=== PATIENT | male | born 1955 | race Caucasian/White ===

== ENCOUNTER 2019-09-27 04:51 | Inpatient (IN) | payer MEDICAID ==
[2019-09-27] VITALS (7 sets, daily range): BP systolic 157–180; BP diastolic 68–120
[~2019-09-27] VITALS: Ht 165.1 cm; Wt 90.5 kg
[~2019-09-27 04:51] MED LIST: AMOX1TAB64 PO; ATEN25TA PO; BUSP5TAB2 PO; CHLO25CA9 PO; CITA20TA9 PO; CITA40TA12 PO; CLON0.5T PO; CLON0.5T20 PO; CLON1TAB PO; CYCL-259 PO; DEXT10TA7 PO; DULO20CA45 PO; DULO60CA56 PO; FLUO10CA13 PO; GABA300C10 PO; LITH150C PO; LITH300C PO; LITH300T3 PO; MELO7.5T31 PO; NICO-487 TD; PANT40TA3 PO; TRAM-47 PO; TRAM50TA2 PO; ZIPR40CA2 PO
[2019-09-27] MEDS ORDERED: BISACODYL 10 MG SUPP PR PRN ×2 (05:30→17:30)
[2019-09-27] MEDS ORDERED: ONDANSETRON ODT 4 MG PO PRN (05:30)
[2019-09-27] MEDS ORDERED: POLYETHYLENE GLYCOL 17 GM PACKET PO PRN (05:30)
[2019-09-27] MEDS ORDERED: DOCUSATE 100 MG CAPSULE PO PRN (05:30)
[2019-09-27] MEDS ORDERED: PLEASE ENTER HEIGHT AND WEIGHT MC SCH (06:30)
[2019-09-27] MEDS ORDERED: LISINOPRIL 20 MG TABLET ONE (08:42)
[2019-09-27] MEDS: CHOLECALCIFEROL 1,000 UNIT TABLET PO SCH (08:46)
[2019-09-27] MEDS: CALCIUM CARBONATE 500 MG TABLET PO SCH (08:46)
[2019-09-27] MEDS ORDERED: LISINOPRIL 10 MG TABLET PO SCH ×2 (09:00)
[2019-09-27] MEDS ORDERED: CITALOPRAM 20 MG TABLET PO SCH (09:00)
[2019-09-27] MEDS: LISINOPRIL 20 MG TABLET PO SCH (09:00)
[2019-09-27 09:08] LABS: ALBUMIN 3.3 g/dL (3.4-5.0); ANION GAP 11 mmol/L (5-15); CALCIUM 9.2 mg/dL (8.5-10.1); CHLORIDE 111 mmol/L (98-107); CREATININE 0.94 mg/dL (0.7-1.3)
[2019-09-27 09:25] LABS: CHOL/HDL RATIO 3.1; LDL/HDL RATIO 1.6 (0.5-3.0)
[2019-09-27] MEDS: DULOXETINE 30 MG CAPSULE.DR PO SCH (09:26)
[2019-09-27] MEDS: BACLOFEN 10 MG TABLET PO SCH ×2 (10:05→21:17)
[2019-09-27] MEDS: ACETAMINOPHEN 325 MG TABLET PO PRN (11:23)
[2019-09-27] MEDS ORDERED: BACLOFEN 10 MG TABLET PO SCH (12:00)
[2019-09-27] MEDS ORDERED: LABETALOL 5MG/ML, 20ML IVPush PRN (14:30)
[2019-09-27] MEDS ORDERED: OXYC15TA3 PO (14:31)
[2019-09-27] MEDS ORDERED: HYDR-826 PO (14:31)
[2019-09-27] MEDS ORDERED: ALEN10TA10 PO (14:31)
[2019-09-27] MEDS ORDERED: LISI-167 PO (14:31)
[2019-09-27] MEDS ORDERED: CLON0.1T22 PO (14:31)
[2019-09-27] MEDS ORDERED: FERR-46 PO (14:31)
[2019-09-27] MEDS ORDERED: ASPI81TA45 PO (14:31)
[2019-09-27] MEDS ORDERED: MIRT-34 PO (14:31)
[2019-09-27] MEDS: IBUPROFEN 200 MG TABLET PO PRN (14:36)
[2019-09-27] MEDS: SENNA/DOCUSATE TABLET PO SCH (18:17)
[2019-09-27] MEDS: MIRTAZAPINE 15 MG TABLET PO SCH (21:17)
[2019-09-28] MEDS: ACETAMINOPHEN 325 MG TABLET PO PRN (04:14)
[2019-09-28] MEDS: IBUPROFEN 200 MG TABLET PO PRN (04:26)
[2019-09-28] MEDS: ALENDRONATE 10 MG TABLET PO SCH (05:54)
[2019-09-28 07:30] VITALS: BP 138/88
[2019-09-28] MEDS ORDERED: PROCHLORPERAZINE 5 MG/ML, 2ML IVPush ONE (08:30)
[2019-09-28] MEDS ORDERED: KETOROLAC 30 MG/1 ML IVPush ONE (08:30)
[2019-09-28] MEDS ORDERED: DIPHENHYDRAMINE 50 MG/ML, 1ML IVPush ONE (08:30)
[2019-09-28] MEDS ORDERED: SODIUM CHLORIDE 0.9% 1,000ML IVBOLUS ONE (08:30)
[2019-09-28 09:00] VITALS: BP 158/124
[2019-09-28] MEDS: LISINOPRIL 20 MG TABLET PO SCH (09:00)
[2019-09-28] MEDS: CALCIUM CARBONATE 500 MG TABLET PO SCH (09:42)
[2019-09-28] MEDS: DULOXETINE 30 MG CAPSULE.DR PO SCH (09:42)
[2019-09-28] MEDS: GABAPENTIN 300 MG CAPSULE PO SCH ×3 (09:43→20:34)
[2019-09-28] MEDS: SENNA/DOCUSATE TABLET PO SCH (09:43)
[2019-09-28] MEDS: BACLOFEN 10 MG TABLET PO SCH ×2 (09:44→20:33)
[2019-09-28] MEDS: CHOLECALCIFEROL 1,000 UNIT TABLET PO SCH (09:44)
[2019-09-28] MEDS: LIDODERM 5% PATCH TD SCH (11:18)
[2019-09-28 12:01] VITALS: BP 176/95
[2019-09-28 20:00] VITALS: BP 169/109
[2019-09-28] MEDS: MIRTAZAPINE 15 MG TABLET PO SCH (20:34)
[2019-09-28] MEDS: SODIUM CHLORIDE FLUSH 10ML SYR IVF SCH (20:45)
[2019-09-29] MEDS: ALENDRONATE 10 MG TABLET PO SCH (05:54)
[2019-09-29] MEDS: IBUPROFEN 200 MG TABLET PO PRN ×3 (05:54→23:12)
[2019-09-29] MEDS: LISINOPRIL 20 MG TABLET PO SCH (07:42)
[2019-09-29 07:45] VITALS: BP 164/123
[2019-09-29] MEDS: DULOXETINE 30 MG CAPSULE.DR PO SCH (09:03)
[2019-09-29] MEDS: GABAPENTIN 300 MG CAPSULE PO SCH (09:03)
[2019-09-29] MEDS: CHOLECALCIFEROL 1,000 UNIT TABLET PO SCH (09:03)
[2019-09-29] MEDS: BACLOFEN 10 MG TABLET PO SCH ×2 (09:03→20:21)
[2019-09-29] MEDS: ACETAMINOPHEN 325 MG TABLET PO PRN (09:03)
[2019-09-29] MEDS: SENNA/DOCUSATE TABLET PO SCH (09:04)
[2019-09-29] MEDS: CALCIUM CARBONATE 500 MG TABLET PO SCH (09:04)
[2019-09-29] MEDS: SODIUM CHLORIDE FLUSH 10ML SYR IVF SCH ×2 (09:27→20:28)
[2019-09-29] MEDS: LIDODERM 5% PATCH TD SCH (13:59)
[2019-09-29] MEDS: HYDROcodone/APAP 10/325 MG TABLET PO PRN (14:01)
[2019-09-29] MEDS: GABAPENTIN 400 MG CAPSULE PO SCH ×2 (16:27→20:21)
[2019-09-29 19:56] VITALS: BP 147/86
[2019-09-29] MEDS: MIRTAZAPINE 15 MG TABLET PO SCH (20:21)
[2019-09-30] MEDS: HYDROcodone/APAP 10/325 MG TABLET PO PRN ×2 (02:39→13:49)
[2019-09-30 07:43] VITALS: BP 168/124
[2019-09-30] MEDS: BACLOFEN 10 MG TABLET PO SCH ×2 (07:54→20:15)
[2019-09-30] MEDS: LISINOPRIL 20 MG TABLET PO SCH ×2 (07:54→20:15)
[2019-09-30] MEDS: CALCIUM CARBONATE 500 MG TABLET PO SCH (07:54)
[2019-09-30] MEDS: DULOXETINE 30 MG CAPSULE.DR PO SCH (07:54)
[2019-09-30] MEDS: GABAPENTIN 400 MG CAPSULE PO SCH ×3 (07:54→20:15)
[2019-09-30] MEDS: CHOLECALCIFEROL 1,000 UNIT TABLET PO SCH (07:55)
[2019-09-30] MEDS: SENNA/DOCUSATE TABLET PO SCH (08:06)
[2019-09-30] MEDS: SODIUM CHLORIDE FLUSH 10ML SYR IVF SCH ×2 (08:10→20:34)
[2019-09-30] MEDS: LIDODERM 5% PATCH TD SCH (12:40)
[2019-09-30] MEDS: AMLODIPINE 10 MG TAB PO SCH (13:09)
[2019-09-30 19:51] VITALS: BP 149/99
[2019-09-30] MEDS: MIRTAZAPINE 15 MG TABLET PO SCH (20:16)
[2019-10-01] MEDS: HYDROcodone/APAP 10/325 MG TABLET PO PRN ×3 (04:33→18:44)
[2019-10-01] MEDS: ALENDRONATE 10 MG TABLET PO SCH ×2 (06:26→07:28)
[2019-10-01 07:59] VITALS: BP 148/108
[2019-10-01] MEDS: GABAPENTIN 400 MG CAPSULE PO SCH ×3 (08:05→20:12)
[2019-10-01] MEDS: DULOXETINE 30 MG CAPSULE.DR PO SCH (08:05)
[2019-10-01] MEDS: CALCIUM CARBONATE 500 MG TABLET PO SCH (08:06)
[2019-10-01] MEDS: SENNA/DOCUSATE TABLET PO SCH (08:18)
[2019-10-01] MEDS: LISINOPRIL 20 MG TABLET PO SCH ×2 (08:19→20:12)
[2019-10-01] MEDS: BACLOFEN 10 MG TABLET PO SCH ×2 (08:21→20:12)
[2019-10-01] MEDS: AMLODIPINE 10 MG TAB PO SCH (08:22)
[2019-10-01] MEDS: SODIUM CHLORIDE FLUSH 10ML SYR IVF SCH ×2 (09:00→20:14)
[2019-10-01] MEDS: CHOLECALCIFEROL 1,000 UNIT TABLET PO SCH (12:23)
[2019-10-01] MEDS: LIDODERM 5% PATCH TD SCH (18:44)
[2019-10-01 19:15] VITALS: BP 116/84
[2019-10-01] MEDS: MIRTAZAPINE 15 MG TABLET PO SCH (20:12)
[2019-10-02] MEDS: HYDROcodone/APAP 10/325 MG TABLET PO PRN ×2 (05:10→17:02)
[2019-10-02] MEDS: ALENDRONATE 10 MG TABLET PO SCH (05:55)
[2019-10-02 07:00] VITALS: BP 145/93
[2019-10-02] MEDS: SODIUM CHLORIDE FLUSH 10ML SYR IVF SCH ×2 (09:14→21:00)
[2019-10-02] MEDS: CALCIUM CARBONATE 500 MG TABLET PO SCH (09:16)
[2019-10-02] MEDS: DULOXETINE 30 MG CAPSULE.DR PO SCH (09:16)
[2019-10-02] MEDS: CHOLECALCIFEROL 1,000 UNIT TABLET PO SCH (09:16)
[2019-10-02] MEDS: SENNA/DOCUSATE TABLET PO SCH (09:16)
[2019-10-02] MEDS: LISINOPRIL 20 MG TABLET PO SCH ×2 (09:17→20:21)
[2019-10-02] MEDS: AMLODIPINE 10 MG TAB PO SCH (09:17)
[2019-10-02] MEDS: GABAPENTIN 400 MG CAPSULE PO SCH ×3 (09:17→20:20)
[2019-10-02] MEDS: BACLOFEN 10 MG TABLET PO SCH ×2 (09:17→20:21)
[2019-10-02] MEDS: LIDODERM 5% PATCH TD SCH (11:11)
[2019-10-02] MEDS ORDERED: HYDROXYZINE PAMOATE 50MG CAP ONE (11:18)
[2019-10-02] MEDS: HYDROXYZINE PAMOATE 50MG CAP PO PRN (11:22)
[2019-10-02] MEDS ORDERED: GABA-827 PO (13:18)
[2019-10-02] MEDS ORDERED: CALC500T11 PO (13:18)
[2019-10-02] MEDS ORDERED: MIRT-34 PO (13:18)
[2019-10-02] MEDS ORDERED: CHOL10003 PO (13:18)
[2019-10-02] MEDS ORDERED: LISI-170 PO (13:18)
[2019-10-02] MEDS ORDERED: DULO30CA2 PO (13:18)
[2019-10-02] MEDS ORDERED: AMLO10TA8 PO (13:18)
[2019-10-02 19:43] VITALS: BP 144/81
[2019-10-02] MEDS: MIRTAZAPINE 15 MG TABLET PO SCH (20:20)
[2019-10-03] MEDS: HYDROcodone/APAP 10/325 MG TABLET PO PRN ×2 (00:08→07:31)
[2019-10-03] MEDS: IBUPROFEN 200 MG TABLET PO PRN (03:28)
[2019-10-03] MEDS: HYDROXYZINE PAMOATE 50MG CAP PO PRN (05:41)
[2019-10-03] MEDS: ALENDRONATE 10 MG TABLET PO SCH (06:23)
[2019-10-03 07:00] VITALS: BP 139/92
[2019-10-03] MEDS: DULOXETINE 30 MG CAPSULE.DR PO SCH (07:30)
[2019-10-03] MEDS: LISINOPRIL 20 MG TABLET PO SCH (07:30)
[2019-10-03] MEDS: SENNA/DOCUSATE TABLET PO SCH (07:30)
[2019-10-03] MEDS: CHOLECALCIFEROL 1,000 UNIT TABLET PO SCH (07:31)
[2019-10-03] MEDS: AMLODIPINE 10 MG TAB PO SCH (07:32)
[2019-10-03] MEDS: CALCIUM CARBONATE 500 MG TABLET PO SCH (07:32)
[2019-10-03] MEDS: GABAPENTIN 400 MG CAPSULE PO SCH (07:32)
[2019-10-03] MEDS: SODIUM CHLORIDE FLUSH 10ML SYR IVF SCH (07:34)
[2019-10-03] MEDS: BACLOFEN 10 MG TABLET PO SCH (07:40)
== END 2019-10-03 08:20 | disposition home or self-care (01) | DRG 753 ==
LOC: 3E 06:23
PROVIDERS: ADMIT Psychiatry & Neurology Psychosomatic Medicine; ATTEND Psychiatry & Neurology Psychosomatic Medicine
DX: F31.30 Bipolar disorder, current episode depressed, mild or moderate severity, unspecified (principal); R45.851 Suicidal ideations; D50.9 Iron deficiency anemia, unspecified; E66.9 Obesity, unspecified; F17.200 Nicotine dependence, unspecified, uncomplicated; G47.00 Insomnia, unspecified; G89.29 Other chronic pain; I10 Essential (primary) hypertension; M81.0 Age-related osteoporosis without current pathological fracture; M54.9 Dorsalgia, unspecified; Z79.82 Long term (current) use of aspirin; Z79.83 Long term (current) use of bisphosphonates; Z68.32 Body mass index [BMI] 32.0-32.9, adult; Z88.5 Allergy status to narcotic agent
CPT/HCPCS: 36415; 71045; 74177; 80061; 80069; 84443; 93005; J1885; Q0162; J0780; J1200; J7030

== ENCOUNTER 2019-10-28 19:35 | Emergency (ER) | payer MEDICAID ==
[~2019-10-28] VITALS: Ht 172.7 cm; Wt 90.0 kg
[~2019-10-28 19:35] MED LIST changes: +ALEN10TA10 PO; +AMLO10TA8 PO; +ASPI81TA45 PO; +CALC500T11 PO; +CHOL10003 PO; +CLON0.1T22 PO; +DULO30CA2 PO; +FERR-46 PO; +GABA-827 PO; +HYDR-826 PO; +LISI-167 PO; +LISI-170 PO; +MIRT-34 PO; +OXYC15TA3 PO
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
[2019-10-28 20:04] LABS: BASOPHILS # (AUTO) 0.06 x10^3/uL (0-0.1); BASOPHILS % (AUTO) 1 % (0-1); EOSINOPHILS # (AUTO) 0.37 x10^3/uL (0-0.4); EOSINOPHILS % (AUTO) 4 % (1-7); LYMPHOCYTES # (AUTO) 2.53 x10^3/uL (1-3.4); LYMPHOCYTES % (AUTO) 28 % (22-44); MD NO; MEAN CORPUSCULAR HEMOGLOBIN 31.5 pg (27.5-34.5); MEAN CORPUSCULAR HGB CONC 33.5 g/dL (33.2-36.2); MEAN CORPUSCULAR VOLUME 93.9 fL (81-97); MEAN PLATELET VOLUME 6.2 fL (7.4-10.4); MONOCYTES # (AUTO) 1.08 x10^3/uL (0.2-0.8); MONOCYTES % (AUTO) 12 % (2-9); NEUTROPHILS % (AUTO) 56 % (42-75); PLATELET COUNT 334 x10^3/uL (130-400); RED BLOOD COUNT 4.85 x10^6/uL (4.38-5.82); RED CELL DISTRIBUTION WIDTH 14.9 % (9.4-14.8)
--- NOTE | 2019-10-28 20:08 | NUR ---
PT RESTING ON GURNEY, MONITORS IN PLACE, SIDRAILS UP X2, CALL LIGHT WITHIN REACH.
[2019-10-28 20:15] LABS: ALANINE AMINOTRANSFERASE 22 U/L (12-78); ALBUMIN 3.8 g/dL (3.4-5.0); ANION GAP 9 mmol/L (5-15); CALCIUM 8.5 mg/dL (8.5-10.1); CHLORIDE 108 mmol/L (98-107); SALICYLATE LEVEL 2.4 mg/dL (2.8-20.0)
--- NOTE | 2019-10-28 20:16 | NUR ---
URINE SAMPLE TAKEN TO LAB
[2019-10-28 20:19] LABS: ALKALINE PHOSPHATASE 75 U/L (45-117); BILIRUBIN,TOTAL 0.4 mg/dL (0.2-1.0); TOTAL PROTEIN 7.2 g/dL (6.4-8.2)
[2019-10-28 20:50] LABS: AMPHETAMINE SCREEN, URINE Negative (Negative); BARBITURATE SCREEN, URINE Negative (Negative); BENZODIAZEPINE SCREEN, URINE Negative (Negative); CANNABINOID SCREEN, URINE Positive (Negative); COCAINE SCREEN, URINE Negative (Negative); METHADONE SCREEN, URINE Negative (Negative); OPIATE SCREEN, URINE Negative (Negative)
--- NOTE | 2019-10-28 21:05 | NUR ---
PT AMBULATED TO ED ROOM 02 WITH STANDBY ASSIST, TOLERATED TRANSFER WITHOUT DIFFICULTY, ALL PERSONAL BELONGINGS REMOVED FROM ROOM AND PLACED IN SECURITY LOCKER ( 1 BAG). REPORT GIVEN TO PERRY OCAMPO
--- NOTE | 2019-10-28 21:06 | NUR ---
Pt report from Ning rn. This rn to assume care of pt. Pt changings out of clothes and puting into 1 of 1 bags.
--- NOTE | 2019-10-28 21:09 | NUR ---
Roller doors in place. Sitter in hallway. No immediate needs from pt.
--- NOTE | 2019-10-28 23:01 | NUR ---
Md to bedside for reassessment at this time.
--- NOTE | 2019-10-28 23:05 | NUR ---
Pt to be a L2K hold per md. Hospital bed ordered for pt comfort.
--- NOTE | 2019-10-28 23:51 | NUR ---
MT: [facility] DENIED PT BUT WILL REFER PT TO [facility]. PSYCH PACKETS SENT TO ALL APPROPRIATE FACILITIES.
--- NOTE | 2019-10-29 | NUR ---
PANKAJ RN: PACKET FAXED TO [facility], [facility]
--- NOTE | 2019-10-29 00:10 | NUR ---
Pt not sure of medication doses and medications. "it should be in there what i take."
--- NOTE | 2019-10-29 01:34 | NUR ---
Sleeping comfortably on gurney. Rr even and unlabored. Nadn.
--- NOTE | 2019-10-29 02:46 | NUR ---
Placed on hospital bed at this time.
--- NOTE | 2019-10-29 02:56 | NUR ---
Pt bedside report to Una AMADOR.
--- NOTE | 2019-10-29 02:59 | NUR ---
report from PERRY velasquez
--- NOTE | 2019-10-29 04:00 | NUR ---
pt resting on hospital bed, eyes closed, resp even and unblabored. sitter at doorway for frequent checks.
--- NOTE | 2019-10-29 05:19 | NUR ---
pt resting on hospital bed, eyes closed, resp even and unblabored. sitter at doorway for frequent checks.
[2019-10-29] MEDS ORDERED: OXYcodone/APAP 10/325MG TABLET ONE (05:49)
[2019-10-29] MEDS ORDERED: OXYcodone/APAP 10/325MG TABLET PO ONE (06:00)
--- NOTE | 2019-10-29 06:00 | NUR ---
pt requesting pain meds because he states he has chronic back pain. er md notified, orders recieved and pt medicated for pain per emar. pt resting on hospital bed, resp even and unblabored. sitter at doorway for frequent checks.
--- NOTE | 2019-10-29 07:00 | NUR ---
REPORT RECEIVED FROM VALDEZ AMADOR.
[2019-10-29 07:45] VITALS: BP 136/92
--- NOTE | 2019-10-29 07:45 | NUR ---
PT RESTING ON HOSPITAL BED W/ SITTER OUTSIDE ROOM AND GARAGE DOORS DOWN. PT PLESANT AND COOPERATIVE. DENIES SI, STATES "I DRANK TO MUCH". REPORTS HE WAS ADMITTED HERE A MONTH AGO FOR SI BUT THAT WAS DUE TO HIS PHYSICAL PAIN. PT REPORTS HE HAS BEEN WORKING W/ PAIN CLINIC/HALF-WAY TO GET [facility]OSOM[employer] RX BUT HAS BEEN UNABLE TO GET IT FILLED. PT MELVINA TEJEDA. BREAKFAST TRAY ORDERED.
--- NOTE | 2019-10-29 08:00 | NUR ---
BREAKFAST TRAY DELIVERED
--- NOTE | 2019-10-29 08:45 | NUR ---
PT RESTING ON HOSPITAL BED W/ SITTER OUTSIDE ROOM AND GARAGE DOORS DOWN FOR SAFETY. RESO EVEN AND UNLABORED, MELVINA.
--- NOTE | 2019-10-29 09:48 | NUR ---
PT AMBULATED TO THE SHOWER W/ A STEADY GAIT. SITTER OUTSIDE SHOWER ROOM FOR SAFETY.
--- NOTE | 2019-10-29 10:00 | NUR ---
PT RETURNED TO ROOM. NEW NON SLIP SOCKS AND GOWN PROVIDED. PT RESTING ON HOSPITAL BED W/ SITTER OUTSIDE ROOM AND GARAGE DOORS DOWN FOR SAFETY. MELVINA.
--- NOTE | 2019-10-29 11:00 | NUR ---
PT SLEEPING ON HOSPITAL BED W/ SITTER OUTSIDE ROOM AND GARAGE DOORS DOWN FOR SAFETY. CHEST RISE AND FALL OBSERVED, NADN.
--- NOTE | 2019-10-29 12:31 | NUR ---
LUNCH TRAY DELIVERED. PT PROVIDED COFFEE UPON REQUEST.
--- NOTE | 2019-10-29 13:30 | NUR ---
NEREYDA SALAZAR AT BEDSIDE FOR PSYCH EVAL.
--- NOTE | 2019-10-29 14:42 | NUR ---
BRENDA FROM PT'S [facility] HERE TO PICK PT UP. 1 BELONGING BAG RETURNED TO PT. PT CHANGED, GIVEN DC INSTRUCTIONS, VERBALIZED UNDERSTANDING OF DC INSTRUCTIONS. AMBULATED TO LOBBY W/ A STEADY GAIT.
== END 2019-10-29 14:44 | disposition home or self-care (01) ==
LOC: ED 23:22
DX: F10.129 Alcohol abuse with intoxication, unspecified (principal); R45.851 Suicidal ideations; F32.9 Major depressive disorder, single episode, unspecified; R11.2 Nausea with vomiting, unspecified; K59.00 Constipation, unspecified; R10.84 Generalized abdominal pain; K21.9 Gastro-esophageal reflux disease without esophagitis; I10 Essential (primary) hypertension; Y90.0 Blood alcohol level of less than 20 mg/100 ml
CPT/HCPCS: 36415; 80053; 80307; 83690; 85025; 99284

== ENCOUNTER 2019-11-09 14:37 | Emergency (ER) | payer MEDICAID ==
[~2019-11-09] VITALS: Ht 172.7 cm; Wt 88.5 kg
[2019-11-09] MEDS ORDERED: SODIUM CHLORIDE FLUSH 10ML SYR IVF ONE ×2 (15:00→16:30)
[2019-11-09 15:12] LABS: BASOPHILS # (AUTO) 0.05 x10^3/uL (0-0.1); BASOPHILS % (AUTO) 1 % (0-1); EOSINOPHILS # (AUTO) 0.31 x10^3/uL (0-0.4); EOSINOPHILS % (AUTO) 3 % (1-7); LYMPHOCYTES % (AUTO) 24 % (22-44); MD NO; MEAN CORPUSCULAR HEMOGLOBIN 31.3 pg (27.5-34.5); MEAN CORPUSCULAR HGB CONC 33.6 g/dL (33.2-36.2); MEAN CORPUSCULAR VOLUME 93.1 fL (81-97); MEAN PLATELET VOLUME 6.4 fL (7.4-10.4); MONOCYTES # (AUTO) 0.91 x10^3/uL (0.2-0.8); MONOCYTES % (AUTO) 10 % (2-9); NEUTROPHILS # (AUTO) 5.69 x10^3/uL (1.8-6.8); NEUTROPHILS % (AUTO) 62 % (42-75); PLATELET COUNT 295 x10^3/uL (130-400); RED BLOOD COUNT 4.43 x10^6/uL (4.38-5.82); RED CELL DISTRIBUTION WIDTH 14.5 % (9.4-14.8)
[2019-11-09 15:24] LABS: ALANINE AMINOTRANSFERASE 20 U/L (12-78); ALBUMIN 3.5 g/dL (3.4-5.0); ANION GAP 8 mmol/L (5-15); CALCIUM 8.5 mg/dL (8.5-10.1); CHLORIDE 108 mmol/L (98-107); CREATININE 0.86 mg/dL (0.7-1.3)
[2019-11-09 15:27] LABS: ALKALINE PHOSPHATASE 71 U/L (45-117); BILIRUBIN,TOTAL 0.5 mg/dL (0.2-1.0); TOTAL PROTEIN 6.8 g/dL (6.4-8.2)
--- NOTE | 2019-11-09 15:48 | NUR ---
TIE BUYER: PT TO ROOM VIA WHEELCHAIR FROM [facility]
--- NOTE | 2019-11-09 16:17 | NUR ---
FIRST CONTACT WITH PT. PT REPORTS LOWER RIGHT ABD QUADRANT ABD PAIN THAT STARTED LAST NIGHT. PT REPORTS HES BEEN ANXIOUS AND UNCOMFORTABLE SINCE YESTERDAY. PT REPORTS NAUSEA. PT'S AOX4. RESPS EVEN AND UNLABORED. BP/SPO2 MONITORS IN PLACE. PA AT BEDSIDE TO EVALUATE AT THIS TIME.
--- NOTE | 2019-11-09 16:18 | NUR ---
PT AMB TO BR WITH STEADY GAIT. URINE CUP GIVEN.
[2019-11-09] MEDS ORDERED: ONDANSETRON 2MG/ML, 2ML ONE (16:22)
[2019-11-09] MEDS ORDERED: LORazepam 2 MG/ML, 1ML ONE (16:23)
[2019-11-09] MEDS ORDERED: LORazepam 2 MG/ML, 1ML IVPush ONE (16:30)
[2019-11-09] MEDS ORDERED: ONDANSETRON 2MG/ML, 2ML IVPush ONE (16:30)
[2019-11-09] MEDS ORDERED: SODIUM CHLORIDE 0.9% 1,000ML IVBOLUS ONE (16:30)
--- NOTE | 2019-11-09 16:39 | NUR ---
PIV EST ON R AC WITH NO COMPLICATIONS. PT MEDICATED PER EMAR. NS INFUSING AT THIS TIME.
--- NOTE | 2019-11-09 16:39 | NUR ---
PT PROVIDED URINE SAMPLE AT THIS TIME. UA SENT.
[2019-11-09] MEDS ORDERED: OMNIPAQUE 350 MG/ML, 100ML BOTTLE ONE (16:49)
--- NOTE | 2019-11-09 16:54 | NUR ---
pt back to room from ct at this time.
[2019-11-09 17:18] LABS: MICROSCOPIC NOT IND
[2019-11-09] MEDS ORDERED: AMOXICILLIN/CLAV 875-125MG TABLET PO STA (17:19)
[2019-11-09] MEDS ORDERED: metroNIDAZOLE 500 MG TABLET ONE (17:28)
[2019-11-09] MEDS ORDERED: AMOXICILLIN/CLAV 875-125MG TABLET ONE (17:28)
[2019-11-09] MEDS ORDERED: metroNIDAZOLE 500 MG TABLET PO ONE (17:30)
--- NOTE | 2019-11-09 17:32 | NUR ---
pt medicated per emar. pt tolerated well. pt's aox4. resps even and unlabored.
--- NOTE | 2019-11-09 17:48 | NUR ---
pt amb to br with steady gait at this time.
[2019-11-09 17:55] VITALS: BP 124/74
== END 2019-11-09 17:57 | disposition home or self-care (01) ==
LOC: ED 15:58
DX: K57.92 Diverticulitis of intestine, part unspecified, without perforation or abscess without bleeding (principal); I10 Essential (primary) hypertension; K21.9 Gastro-esophageal reflux disease without esophagitis; F17.200 Nicotine dependence, unspecified, uncomplicated
CPT/HCPCS: 36415; 74177; 80053; 81003; 85025; 96374; 96375; 99285; J2060; J2405; J7030; Q9967

== ENCOUNTER 2019-11-26 09:07 | Inpatient (IN) | payer MEDICAID ==
[~2019-11-26] VITALS: Ht 165.1 cm; Wt 84.2 kg
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
[2019-11-26] MEDS ORDERED: OXYcodone IR 5MG TABLET ONE (10:28)
[2019-11-26] MEDS ORDERED: OXYcodone 5 MG/5 ML ORAL.SOL UDC PO ONE (10:30)
--- NOTE | 2019-11-26 10:31 | NUR ---
medicated per emar (10mg po oxycodone) for back pain at 10 to radiology immediately after med pass
[2019-11-26] MEDS ORDERED: OXYcodone IR 5MG TABLET PO STA (11:08)
--- NOTE | 2019-11-26 11:17 | NUR ---
with reassessment pain improved to 7/10
[2019-11-26] MEDS ORDERED: SODIUM CHLORIDE FLUSH 10ML SYR IVF ONE (12:00)
--- NOTE | 2019-11-26 12:11 | NUR ---
LAB AT BEDSIDE UP TO RESTROOM TO VOID- AGAIN NO NEURO DEFICITS
[2019-11-26 12:13] LABS: BASOPHILS # (AUTO) 0.03 x10^3/uL (0-0.1); BASOPHILS % (AUTO) 1 % (0-1); EOSINOPHILS % (AUTO) 2 % (1-7); LYMPHOCYTES # (AUTO) 1.57 x10^3/uL (1-3.4); LYMPHOCYTES % (AUTO) 27 % (22-44); MD NO; MEAN CORPUSCULAR HEMOGLOBIN 30.7 pg (27.5-34.5); MEAN CORPUSCULAR VOLUME 92.8 fL (81-97); MEAN PLATELET VOLUME 5.9 fL (7.4-10.4); MONOCYTES # (AUTO) 0.71 x10^3/uL (0.2-0.8); MONOCYTES % (AUTO) 12 % (2-9); NEUTROPHILS # (AUTO) 3.32 x10^3/uL (1.8-6.8); NEUTROPHILS % (AUTO) 58 % (42-75); PLATELET COUNT 369 x10^3/uL (130-400); RED BLOOD COUNT 4.44 x10^6/uL (4.38-5.82); RED CELL DISTRIBUTION WIDTH 14.1 % (9.4-14.8)
[2019-11-26 12:26] LABS: ALANINE AMINOTRANSFERASE 20 U/L (12-78); ALBUMIN 3.7 g/dL (3.4-5.0); ANION GAP 8 mmol/L (5-15); CHLORIDE 112 mmol/L (98-107); CREATININE 0.82 mg/dL (0.7-1.3)
[2019-11-26 12:28] LABS: ALKALINE PHOSPHATASE 58 U/L (45-117); BILIRUBIN,TOTAL 0.7 mg/dL (0.2-1.0); TOTAL PROTEIN 6.6 g/dL (6.4-8.2)
[2019-11-26 12:30] LABS: MICROSCOPIC NOT IND
[2019-11-26 14:30] VITALS: BP 140/94
[2019-11-26] MEDS ORDERED: DOCUSATE 100 MG CAPSULE PO PRN (14:30)
[2019-11-26] MEDS ORDERED: ONDANSETRON ODT 4 MG PO PRN (14:30)
[2019-11-26] MEDS ORDERED: POLYETHYLENE GLYCOL 17 GM PACKET PO PRN (14:30)
[2019-11-26] MEDS ORDERED: ACETAMINOPHEN 325 MG TABLET PO PRN (14:30)
[2019-11-26] MEDS ORDERED: ONDANSETRON 2MG/ML, 2ML IVPush PRN (14:30)
[2019-11-26] MEDS ORDERED: BISACODYL 10 MG SUPP PR PRN (14:30)
[2019-11-26] MEDS: ENOXAPARIN 40 MG/0.4 ML SQ SCH (15:14)
[2019-11-26] MEDS: METHOCARBAMOL 500 MG TABLET PO SCH ×2 (15:15→20:59)
[2019-11-26] MEDS: LIDODERM 5% PATCH TD SCH (15:16)
[2019-11-26] MEDS: OXYcodone IR 5MG TABLET PO SCH ×2 (15:25→22:34)
[2019-11-26] MEDS ORDERED: GADOTERATE 10 MMOL/20 ML SYR ONE (16:06)
[2019-11-26 19:22] VITALS: BP 123/85
[2019-11-26] MEDS: LISINOPRIL 20 MG TABLET PO SCH (21:00)
[2019-11-26] MEDS: MIRTAZAPINE 15 MG TABLET PO SCH (21:00)
[2019-11-27 00:46] VITALS: BP 115/91
[2019-11-27] MEDS: morphine SULFATE 10 MG/ML, 1ML IVPush PRN ×5 (03:29→21:11)
[2019-11-27] MEDS: METHOCARBAMOL 500 MG TABLET PO SCH ×4 (05:43→21:11)
[2019-11-27] MEDS: ALENDRONATE 10 MG TABLET PO SCH (06:30)
[2019-11-27 08:16] VITALS: BP 112/86
[2019-11-27] MEDS ORDERED: DULOXETINE 30 MG CAPSULE.DR PO SCH (09:00)
[2019-11-27] MEDS: AMLODIPINE 10 MG TAB PO SCH (09:10)
[2019-11-27] MEDS: ASPIRIN 81 MG TABLET EC PO SCH (09:10)
[2019-11-27] MEDS: CALCIUM CARBONATE 500 MG TABLET PO SCH (09:11)
[2019-11-27] MEDS: LISINOPRIL 20 MG TABLET PO SCH ×2 (09:11→21:12)
[2019-11-27] MEDS: OXYcodone IR 5MG TABLET PO SCH ×3 (09:11→22:53)
[2019-11-27] MEDS: CHOLECALCIFEROL 1,000 UNIT TABLET PO SCH (09:11)
[2019-11-27] MEDS: FERROUS SULFATE 325 MG TABLET PO SCH (09:22)
[2019-11-27] MEDS ORDERED: MORPHINE SULFATE 4 MG/ML, 1ML ONE ×2 (10:38→14:07)
[2019-11-27] MEDS: ENOXAPARIN 40 MG/0.4 ML SQ SCH (14:08)
[2019-11-27] MEDS: LIDODERM 5% PATCH TD SCH (14:09)
[2019-11-27 15:26] VITALS: BP 109/76
[2019-11-27 19:29] VITALS: BP 109/76
[2019-11-27] MEDS: MIRTAZAPINE 15 MG TABLET PO SCH (21:12)
[2019-11-28 00:16] VITALS: BP_SYST 85; BP_SYST 89; BP_DIAS 58; BP_DIAS 64
[2019-11-28 00:25] VITALS: BP 117/83
[2019-11-28] MEDS: morphine SULFATE 10 MG/ML, 1ML IVPush PRN ×2 (04:05→11:38)
[2019-11-28] MEDS: METHOCARBAMOL 500 MG TABLET PO SCH ×2 (05:30→11:38)
[2019-11-28] MEDS: ALENDRONATE 10 MG TABLET PO SCH (06:31)
[2019-11-28 06:54] VITALS: BP 117/77
[2019-11-28] MEDS: CALCIUM CARBONATE 500 MG TABLET PO SCH (08:41)
[2019-11-28] MEDS: OXYcodone IR 5MG TABLET PO SCH (08:41)
[2019-11-28] MEDS: LISINOPRIL 20 MG TABLET PO SCH (08:42)
[2019-11-28] MEDS: AMLODIPINE 10 MG TAB PO SCH (08:43)
[2019-11-28] MEDS: CHOLECALCIFEROL 1,000 UNIT TABLET PO SCH (08:43)
[2019-11-28] MEDS: FERROUS SULFATE 325 MG TABLET PO SCH (08:43)
[2019-11-28] MEDS: ASPIRIN 81 MG TABLET EC PO SCH (08:43)
[2019-11-28] MEDS ORDERED: DULOXETINE 30 MG CAPSULE.DR PO SCH (09:00)
[2019-11-28] MEDS ORDERED: METH500T7 PO (10:06)
[2019-11-28] MEDS ORDERED: DULO30CA2 PO (10:06)
[2019-11-28 13:27] VITALS: BP 93/65
[2019-11-28] MEDS: ENOXAPARIN 40 MG/0.4 ML SQ SCH (14:30)
[2019-11-28] MEDS: LIDODERM 5% PATCH TD SCH (14:30)
== END 2019-11-28 15:19 | disposition home or self-care (01) | DRG 347 ==
LOC: ED 12:28 → EDIP 12:33 → 3N 13:35 → DCLOUNGE 11-28 15:00
PROVIDERS: ADMIT Internal Medicine; ATTEND Internal Medicine
DX: M80.88XA Other osteoporosis with current pathological fracture, vertebra(e), initial encounter for fracture (principal); E66.9 Obesity, unspecified; Z68.30 Body mass index [BMI] 30.0-30.9, adult; F10.10 Alcohol abuse, uncomplicated; F11.20 Opioid dependence, uncomplicated; F31.9 Bipolar disorder, unspecified; G89.29 Other chronic pain; I11.0 Hypertensive heart disease with heart failure; M47.812 Spondylosis without myelopathy or radiculopathy, cervical region; M51.36 Other intervertebral disc degeneration, lumbar region; M51.34 Other intervertebral disc degeneration, thoracic region; Z79.4 Long term (current) use of insulin; Z81.1 Family history of alcohol abuse and dependence; Z81.8 Family history of other mental and behavioral disorders; Z87.442 Personal history of urinary calculi; Z87.891 Personal history of nicotine dependence
CPT/HCPCS: 36415; 72040; 72072; 72100; 72157; 80053; 81003; 82306; 85025; G0378; J1650; A9575; J2270; Q0177

== ENCOUNTER 2019-11-29 13:29 | Emergency (ER) | payer MEDICAID ==
[~2019-11-29] VITALS: Ht 167.6 cm; Wt 70.0 kg
[~2019-11-29 13:29] MED LIST changes: +METH500T7 PO
[2019-11-29 13:47] VITALS: BP 134/98
--- NOTE | 2019-11-29 14:04 | NUR ---
RECEIVED REPORT FROM PERRY DU. PT RESTING ON [facility]. MELVINA. SITTER AT BEDSIDE. ROOM SECURED. BELONGING BAGS (1 OF 1) PLACED IN SECURE LOCKER.
--- NOTE | 2019-11-29 14:25 | NUR ---
REPORT RECEIVED CARE ASSUMED.
--- NOTE | 2019-11-29 14:29 | NUR ---
REPORT GIVEN TO PERRY NICHOLSON.
--- NOTE | 2019-11-29 14:37 | NUR ---
DR ADAN AT BEDSIDE TO EVAL PT
--- NOTE | 2019-11-29 15:00 | NUR ---
CONTACT WITH PT. PT ON [place], SITTING UP, NO ACUTE DISTRESS NOTED. PT COOPERATIVE WITH CARE. PT RAISES LEFT ARM TO SHOW RN, SUPERFICIAL SCRATCHES TO LEFT WRIST, PT STATES, "ITS NOT BAD, JUST A CRY FOR HELP" PT MAKES THIS STATEMENT IN A MATTER OF FACT TONE. PT UPDATED ON POC.
[2019-11-29] MEDS ORDERED: NEOSPORIN OINT. PKT 1 PACKET ONE (15:21)
--- NOTE | 2019-11-29 15:35 | NUR ---
WOUND DRESSED ORDERED. NO IV TO DC. REVIEWED DC INSTRUCTIONS WITH PT. UNDERSTANDING VERBALIZED. PT TO F/U WITH PCP AND/OR THERAPIST. PT LEFT AMB, GAIT STEADY.
== END 2019-11-29 15:37 | disposition home or self-care (01) ==
LOC: ED 13:53
DX: S60.812A Abrasion of left wrist, initial encounter (principal); F43.24 Adjustment disorder with disturbance of conduct; G89.29 Other chronic pain; R45.851 Suicidal ideations; K21.9 Gastro-esophageal reflux disease without esophagitis; I10 Essential (primary) hypertension; F17.200 Nicotine dependence, unspecified, uncomplicated; Z76.5 Malingerer [conscious simulation]; X83.8XXA Intentional self-harm by other specified means, initial encounter; Y93.89 Activity, other specified; Y92.89 Other specified places as the place of occurrence of the external cause; Y99.8 Other external cause status
CPT/HCPCS: 99283

== ENCOUNTER 2020-01-24 08:34 | Emergency (ER) | payer MEDICAID ==
[~2020-01-24] VITALS: Ht 165.1 cm; Wt 89.4 kg
[2020-01-24] MEDS ORDERED: SODIUM CHLORIDE 0.9% 1,000ML IVBOLUS ONE (09:00)
[2020-01-24] MEDS ORDERED: ONDANSETRON 2MG/ML, 2ML IVPush ONE (09:00)
[2020-01-24] MEDS ORDERED: MORPHINE SULFATE 4 MG/ML, 1ML IVPush PRN (09:00)
[2020-01-24] MEDS ORDERED: SODIUM CHLORIDE FLUSH 10ML SYR IVF ONE (09:00)
[2020-01-24] MEDS ORDERED: MORPHINE SULFATE 4 MG/ML, 1ML ONE (09:08)
[2020-01-24] MEDS ORDERED: ONDANSETRON 2MG/ML, 2ML ONE (09:08)
[2020-01-24 09:20] LABS: BASOPHILS # (AUTO) 0.03 x10^3/uL (0-0.1); BASOPHILS % (AUTO) 1 % (0-1); EOSINOPHILS % (AUTO) 4 % (1-7); LYMPHOCYTES # (AUTO) 2.06 x10^3/uL (1-3.4); LYMPHOCYTES % (AUTO) 37 % (22-44); MD NO; MEAN CORPUSCULAR HEMOGLOBIN 32.3 pg (27.5-34.5); MEAN CORPUSCULAR HGB CONC 33.3 g/dL (33.2-36.2); MEAN CORPUSCULAR VOLUME 97.2 fL (81-97); MEAN PLATELET VOLUME 6.5 fL (7.4-10.4); MONOCYTES # (AUTO) 0.67 x10^3/uL (0.2-0.8); MONOCYTES % (AUTO) 12 % (2-9); NEUTROPHILS # (AUTO) 2.68 x10^3/uL (1.8-6.8); NEUTROPHILS % (AUTO) 47 % (42-75); PLATELET COUNT 241 x10^3/uL (130-400); RED BLOOD COUNT 4.73 x10^6/uL (4.38-5.82); RED CELL DISTRIBUTION WIDTH 17.8 % (9.4-14.8)
[2020-01-24 09:28] LABS: ALBUMIN 3.8 g/dL (3.4-5.0); ANION GAP 7 mmol/L (5-15); CALCIUM 8.8 mg/dL (8.5-10.1); CHLORIDE 107 mmol/L (98-107)
[2020-01-24 09:31] LABS: ALANINE AMINOTRANSFERASE 24 U/L (12-78); ALKALINE PHOSPHATASE 77 U/L (45-117); BILIRUBIN,TOTAL 0.7 mg/dL (0.2-1.0); CREATININE 0.94 mg/dL (0.7-1.3)
--- NOTE | 2020-01-24 09:35 | NUR ---
"I THINK I'VE GOT DIVERTICULITIS AGAIN" N/V/D/SWEATING/CHILLS. DIFFUSE ABD PAIN. x2 MONTHS. PT IN BED IN GOWN WITH CONT AIR EXPORT COORDINATOR, SPO2, BPQ 30 MIN, SIDE RAILS UP X2, CALL LIGHT IN REACH. 18 G IV STARTED IN RIGHT AC (BLOOD SENT TO LAB), URINE SENT TO LAB. WAR BLANKET GIVEN. WENT OVER PLAN OF CARE FROM ORDER LIST. AGREES TO PLAN.
--- NOTE | 2020-01-24 09:58 | NUR ---
PT REPORTS THAT HIS PAIN IS BETTER 5/10
[2020-01-24 09:59] LABS: MICROSCOPIC AUTO
[2020-01-24] MEDS ORDERED: OMNIPAQUE 350 MG/ML, 100ML BOTTLE ONE (10:54)
[2020-01-24 11:57] VITALS: BP 132/86
== END 2020-01-24 12:01 | disposition home or self-care (01) ==
LOC: ED 08:53
DX: R10.84 Generalized abdominal pain (principal); R11.2 Nausea with vomiting, unspecified; R19.7 Diarrhea, unspecified; I10 Essential (primary) hypertension; K21.9 Gastro-esophageal reflux disease without esophagitis
CPT/HCPCS: 36415; 74177; 80053; 81001; 83690; 85025; 87086; 93005; 96361; 96374; 96375; 99285; J2270; J2405; J7030; Q9967

== ENCOUNTER 2020-11-12 19:59 | Inpatient (IN) | payer MEDICAID ==
[~2020-11-12] VITALS: Ht 165.1 cm; Wt 79.7 kg
[~2020-11-12 19:59] MED LIST changes: -HYDROcodone/APAP 10/325 MG TABLET ONE; -HYDROcodone/APAP 10/325 MG TABLET PO ONE; -LORazepam 1MG TABLET ONE; -LORazepam 1MG TABLET PO ONE; -OMNIPAQUE 350 MG/ML, 100ML BOTTLE ONE; -ONDANSETRON ODT 4 MG ONE; -ONDANSETRON ODT 4 MG PO ONE; -PLEASE ENTER HEIGHT AND WEIGHT MC SCH; -hydrOXyzine 50MG TABLET ONE; -hydrOXyzine 50MG TABLET PO PRN
[2020-11-12] MEDS ORDERED: POLYETHYLENE GLYCOL 17 GM PACKET PO PRN (20:30)
[2020-11-12] MEDS ORDERED: DOCUSATE 100 MG CAPSULE PO PRN (20:30)
[2020-11-12] MEDS ORDERED: ACETAMINOPHEN 325 MG TABLET PO PRN (20:30)
[2020-11-12] MEDS ORDERED: BISACODYL 10 MG SUPP PR PRN (20:30)
[2020-11-12] MEDS: MIRTAZAPINE 15 MG TABLET PO SCH (21:00)
[2020-11-12] MEDS: LISINOPRIL 20 MG TABLET PO SCH (21:25)
[2020-11-12] MEDS: HYDROcodone/APAP 10/325 MG TABLET PO PRN (21:26)
[2020-11-12] MEDS: DULOXETINE 30 MG CAPSULE.DR PO SCH (21:26)
[2020-11-12] MEDS: ZOLPIDEM 10MG TABLET PO PRN (21:39)
[2020-11-13 00:24] VITALS: BP 132/80
[2020-11-13 02:16] LABS: MICROSCOPIC NOT IND
[2020-11-13] MEDS: ASPIRIN 81 MG TABLET EC PO SCH (05:47)
[2020-11-13] MEDS: HYDROcodone/APAP 10/325 MG TABLET PO PRN ×3 (06:30→18:48)
[2020-11-13 07:19] LABS: CHOL/HDL RATIO 1.5; FREE T4 (FREE THYROXINE) 0.73 ng/dL (0.76-1.46); LDL/HDL RATIO 0.3 (0.5-3.0)
[2020-11-13 08:08] VITALS: BP 105/72
[2020-11-13] MEDS: FERROUS SULFATE 325 MG TABLET PO SCH (08:24)
[2020-11-13] MEDS: AMLODIPINE 10 MG TAB PO SCH (08:25)
[2020-11-13] MEDS: hydrOXyzine 50MG TABLET PO PRN ×2 (08:25→15:25)
[2020-11-13] MEDS: LISINOPRIL 20 MG TABLET PO SCH ×2 (08:25→20:12)
[2020-11-13] MEDS: MELOXICAM 15 MG TABLET PO SCH (08:25)
[2020-11-13] MEDS ORDERED: LISINOPRIL 20 MG TABLET PO SCH (09:00)
[2020-11-13] MEDS: CYCLOBENZAPRINE 10 MG TABLET PO PRN (12:24)
[2020-11-13 19:49] VITALS: BP 100/60
[2020-11-13] MEDS: ZOLPIDEM 10MG TABLET PO PRN (20:12)
[2020-11-13] MEDS: DULOXETINE 30 MG CAPSULE.DR PO SCH (20:12)
[2020-11-13] MEDS: MIRTAZAPINE 15 MG TABLET PO SCH (20:14)
[2020-11-14] MEDS: HYDROcodone/APAP 10/325 MG TABLET PO PRN ×4 (04:15→20:34)
[2020-11-14] MEDS: ASPIRIN 81 MG TABLET EC PO SCH (05:56)
[2020-11-14] MEDS: hydrOXyzine 50MG TABLET PO PRN ×2 (06:46→17:48)
[2020-11-14 07:39] VITALS: BP 116/81
[2020-11-14] MEDS: AMLODIPINE 10 MG TAB PO SCH (08:28)
[2020-11-14] MEDS: DOCUSATE 100 MG CAPSULE PO SCH (08:28)
[2020-11-14] MEDS: CYCLOBENZAPRINE 10 MG TABLET PO PRN (08:28)
[2020-11-14] MEDS: FERROUS SULFATE 325 MG TABLET PO SCH (08:28)
[2020-11-14] MEDS: MELOXICAM 15 MG TABLET PO SCH (08:29)
[2020-11-14] MEDS: LISINOPRIL 20 MG TABLET PO SCH ×2 (08:29→20:34)
[2020-11-14 19:26] VITALS: BP 106/73
[2020-11-14] MEDS: DULOXETINE 30 MG CAPSULE.DR PO SCH (20:33)
[2020-11-14] MEDS: MIRTAZAPINE 15 MG TABLET PO SCH (20:34)
[2020-11-14] MEDS: ZOLPIDEM 10MG TABLET PO PRN (20:34)
[2020-11-15] MEDS: HYDROcodone/APAP 10/325 MG TABLET PO PRN ×4 (02:09→21:05)
[2020-11-15] MEDS: ASPIRIN 81 MG TABLET EC PO SCH (05:57)
[2020-11-15] MEDS: hydrOXyzine 50MG TABLET PO PRN ×3 (06:01→21:00)
[2020-11-15 07:03] VITALS: BP 133/87
[2020-11-15] MEDS: AMLODIPINE 10 MG TAB PO SCH (08:07)
[2020-11-15] MEDS: FERROUS SULFATE 325 MG TABLET PO SCH (08:07)
[2020-11-15] MEDS: LISINOPRIL 20 MG TABLET PO SCH ×2 (08:07→21:00)
[2020-11-15] MEDS: MELOXICAM 15 MG TABLET PO SCH (08:08)
[2020-11-15] MEDS: DOCUSATE 100 MG CAPSULE PO SCH (08:08)
[2020-11-15] MEDS: CYCLOBENZAPRINE 10 MG TABLET PO PRN (11:54)
[2020-11-15] MEDS ORDERED: ONDANSETRON 4 MG TABLET PO PRN (17:00)
[2020-11-15] MEDS ORDERED: ONDANSETRON ODT 4 MG PO PRN (17:30)
[2020-11-15 19:17] VITALS: BP 115/82
[2020-11-15] MEDS: DULOXETINE 30 MG CAPSULE.DR PO SCH (21:00)
[2020-11-15] MEDS: ZOLPIDEM 10MG TABLET PO PRN (21:00)
[2020-11-15] MEDS: MIRTAZAPINE 15 MG TABLET PO SCH (21:00)
[2020-11-16] MEDS: ASPIRIN 81 MG TABLET EC PO SCH (05:39)
[2020-11-16] MEDS: HYDROcodone/APAP 10/325 MG TABLET PO PRN ×2 (05:44→14:21)
[2020-11-16 07:19] VITALS: BP 108/76
[2020-11-16] MEDS: AMLODIPINE 10 MG TAB PO SCH (08:00)
[2020-11-16] MEDS: FERROUS SULFATE 325 MG TABLET PO SCH (08:00)
[2020-11-16] MEDS: hydrOXyzine 50MG TABLET PO PRN (08:00)
[2020-11-16] MEDS: DOCUSATE 100 MG CAPSULE PO SCH (08:01)
[2020-11-16] MEDS: LISINOPRIL 20 MG TABLET PO SCH (08:01)
[2020-11-16] MEDS: MELOXICAM 15 MG TABLET PO SCH (08:01)
[2020-11-18] MEDS ORDERED: ALENDRONATE 70 MG TABLET PO SCH (06:30)
== END 2020-11-16 16:48 | disposition home or self-care (01) | DRG 885 ==
LOC: 3E 20:01
PROVIDERS: ADMIT Psychiatry & Neurology Psychosomatic Medicine; ATTEND Psychiatry & Neurology Psychosomatic Medicine
DX: F33.2 Major depressive disorder, recurrent severe without psychotic features (principal); F11.20 Opioid dependence, uncomplicated; K59.09 Other constipation; G89.29 Other chronic pain; M81.0 Age-related osteoporosis without current pathological fracture; Z81.1 Family history of alcohol abuse and dependence; Z81.8 Family history of other mental and behavioral disorders; Z87.891 Personal history of nicotine dependence; Z91.5 Personal history of self-harm
CPT/HCPCS: 36415; 71045; 74177; 80053; 80061; 80299; 80307; 80320; 80329; 81003; 82607; 84439; 84443; 85025; 87426; 93005; Q0162; Q9967; G0480; Q0177

== ENCOUNTER → 2020-11-12 | Emergency (ER) | payer MEDICAID ==
[~2020-11-12] VITALS: Ht 165.1 cm; Wt 86.0 kg
[~2020-11-12] MED LIST changes: +ALEN70TA3 PO; +AMLO-211 PO; -AMLO10TA8 PO; -CYCL-259 PO; +CYCL10TA2 PO; +HYDR-3248 PO; +HYDR50TA99 PO; +HYDROcodone/APAP 10/325 MG TABLET ONE; +HYDROcodone/APAP 10/325 MG TABLET PO ONE; +LORazepam 1MG TABLET ONE; +LORazepam 1MG TABLET PO ONE; +METH-639 PO; -METH500T7 PO; +MIRT-14 PO; -MIRT-34 PO; -NICO-487 TD; +NICO-587 TD; +OMNIPAQUE 350 MG/ML, 100ML BOTTLE ONE; +ONDA4TAB7 PO; +ONDANSETRON ODT 4 MG ONE; +ONDANSETRON ODT 4 MG PO ONE; +PLEASE ENTER HEIGHT AND WEIGHT MC SCH; +ZOLP10TA PO; +hydrOXyzine 50MG TABLET ONE; +hydrOXyzine 50MG TABLET PO PRN
--- NOTE | 2020-11-12 08:10 | NUR ---
SEE TRIAGE. ROOM SECURED, PT UNDRESSED, PLACED IN GOWN. BELONGINGS PLACED IN BAGX1. PORTABLE VS MACHINE KEPT IN PLACE D/T PT'S MEDICAL COMPLAINTS AND PHYSICAL SYMPTOMS. PT CONTRACTS FOR SAFETY, APPEARS RELIABLE. EKG COMPLETED. ERP NOTIFIED OF PT REPORT OF BILATERAL LQ ABD PAIN, HX OF DIVERTICULITIS. IV TO BE PLACED FOR CT. CALL TO CAREGIVER AT [facility] WHO WILL CALL BACK WITH LIST OF PT'S MEDICATIONS WHEN SHE ARRIVES AT OFFICE. SMALL AMOUNT OF URINE COLLECTED/WALKED TO LAB. SITTER AT DOORWAY FOR CLOSE OBS.
--- NOTE | 2020-11-12 08:35 | NUR ---
IV PLACED, LABS DRAWN WITH START.
--- NOTE | 2020-11-12 08:37 | NUR ---
RECEIVED MED LIST FROM MELE BUTCHER, [facility]. MED REC COMPLETED. ERP NOTIFIED. PT MEDICATED PER ERP ORDER AND HYDROXYZINE 50MG GIVEN PER ERP VERBAL ORDER CONSISTENT WITH HOME MED.
[2020-11-12 08:40] LABS: BASOPHILS % (AUTO) 1 % (0-1); EOSINOPHILS % (AUTO) 1 % (1-7); LYMPHOCYTES % (AUTO) 13 % (22-44); MEAN CORPUSCULAR HEMOGLOBIN 31.7 pg (27.5-34.5); MEAN CORPUSCULAR HGB CONC 33.7 g/dL (33.2-36.2); MEAN PLATELET VOLUME 6.2 fL (7.4-10.4); MONOCYTES % (AUTO) 8 % (2-9); NEUTROPHILS % (AUTO) 77 % (42-75); PLATELET COUNT 302 x10^3/uL (130-400)
--- NOTE | 2020-11-12 08:48 | NUR ---
ALLERGIES UPDATED TO NKA. PT STATES TRAMADOL LISTED ALLERGY IN COMPUTER ERROR AND REMOVED.
[2020-11-12 08:52] LABS: ALANINE AMINOTRANSFERASE 22 U/L (12-78); ALBUMIN 3.9 g/dL (3.4-5.0); ANION GAP 10 mmol/L (5-15); CALCIUM 8.7 mg/dL (8.5-10.1); CHLORIDE 107 mmol/L (98-107); CREATININE 1.04 mg/dL (0.7-1.3); SALICYLATE LEVEL 1.8 mg/dL (2.8-20.0)
--- NOTE | 2020-11-12 08:53 | NUR ---
BELONGING LIST COMPLETED BY [place] SOCKET WELDER HELPER, BAG TO SAM, LIST ON CHART.
[2020-11-12 08:54] LABS: AMPHETAMINE SCREEN, URINE Negative (Negative); BARBITURATE SCREEN, URINE Negative (Negative); BENZODIAZEPINE SCREEN, URINE Negative (Negative); CANNABINOID SCREEN, URINE Negative (Negative); COCAINE SCREEN, URINE Negative (Negative)
[2020-11-12 08:59] LABS: METHADONE SCREEN, URINE Negative (Negative); OPIATE SCREEN, URINE Positive (Negative)
[2020-11-12 09:02] LABS: ALKALINE PHOSPHATASE 71 U/L (45-117); BILIRUBIN,TOTAL 0.6 mg/dL (0.2-1.0); TOTAL PROTEIN 7.2 g/dL (6.4-8.2)
--- NOTE | 2020-11-12 09:08 | NUR ---
PT TO CT.
--- NOTE | 2020-11-12 09:36 | NUR ---
PT STATES PAIN BETTER, RATED 7/10 AT THIS TIME. LESS BUE TREMORS, NO DIAPHORESIS, PT SLEEPING INTERMITTENTLY. SITTER AT DOORWAY.
--- NOTE | 2020-11-12 09:43 | NUR ---
PT MEDICALLY CLEARED BY DR ADAN. AWAITING PSYCH TELEMARKETING FUNDRAISER TO SEE.
--- NOTE | 2020-11-12 10:17 | NUR ---
REMEDIAL TEACHER: RECEIVED A CALL FROM [facility] AND WOULD LIKE A CALL IF PATIENT WILL DISCHARGED , REPORTED TO COLIN AMADOR
--- NOTE | 2020-11-12 11:13 | NUR ---
PT AMBULATORY TO BR PRN. PT COOPERATIVE WITH CARE BUT ANXIOUS. POC REPEATED TO PT AND PT VERBALIZES UNDERSTANDING. MEAL TRAY PROVIDED PREVIOUSLY WHICH PT ATE 100%, NO N/V. SITTER AT DOORWAY FOR CLOSE OBS.
--- NOTE | 2020-11-12 12:36 | NUR ---
VS UPDATED IN COMPUTER. MEAL TRAY ORDERED.
--- NOTE | 2020-11-12 13:28 | NUR ---
MEAL TRAY PROVIDED, PT REFUSES STATING HE DOESN'T WANT IT TO UPSET HIS STOMACH. PT BACK TO SLEEP. CONTINUE TO AWAIT PSYCH TO SEE.
--- NOTE | 2020-11-12 13:30 | NUR ---
CALL FROM CAREGIVER LIONEL AT [facility]. LIONEL TO BE CALLED IF PT DISCHARGED BACK TO HOME.
--- NOTE | 2020-11-12 13:55 | NUR ---
MARTIN DIANA IN TO SEE PT.
--- NOTE | 2020-11-12 14:08 | NUR ---
BEDSIDE REPORT FROM COLIN. PT RESTING IN BED. NADN. SITTER AT BEDSIDE. SAFTEY PRECAUTIONS IN PLACE.
--- NOTE | 2020-11-12 14:46 | NUR ---
PT MEDICATED PER EMAR. TO BATHROOM WITH STEADY GAIT.
--- NOTE | 2020-11-12 16:39 | NUR ---
covid test collected. pt resting comfotably. ambar.
--- NOTE | 2020-11-12 17:07 | NUR ---
PT ASLEEP WITH EVEN AND UNLABORED RESPIRATIONS. SITTER AT BEDSIDE. PT TO TRANSFER TO [facility].
--- NOTE | 2020-11-12 18:59 | NUR ---
REPORT RECIEVED FROM PERRY JOHNSON. PT SLEEPING IN [facility], IN LINE OF SIGHT OF DAVID
--- NOTE | 2020-11-12 19:17 | NUR ---
TP RN: ANDIE NIETO ON [address] [place], [place] FOR PRIMARY RN TO CALL REPORT AND TRANSFER PT
--- NOTE | 2020-11-12 19:36 | NUR ---
REPORT GIVEN TO PERRY MANZO
[2020-11-12 19:45] VITALS: BP 114/79
== END ==
LOC: ED 08:58 → UNDOADMOB 13:04 → EDIP 13:04
DX: R45.851 Suicidal ideations (principal); F32.9 Major depressive disorder, single episode, unspecified; R10.9 Unspecified abdominal pain; M54.9 Dorsalgia, unspecified; F11.20 Opioid dependence, uncomplicated; K21.9 Gastro-esophageal reflux disease without esophagitis
CPT/HCPCS: 36415; 74177; 80053; 80299; 80307; 80320; 80329; 84443; 85025; 87426; 93005; Q0162; Q9967; G0480; Q0177

== ENCOUNTER 2020-12-26 16:40 | Emergency (ER) | payer MEDICAID ==
[~2020-12-26] VITALS: Ht 165.1 cm; Wt 85.0 kg
--- NOTE | 2020-12-26 17:39 | NUR ---
PT BIB EMS FOR MGLF. PT ADMITS TO ETOH AND TAKING SOME NORCOS TODAY. PT HAS RX FOR NORCO FOR HIS CHRONIC BACK PAIN. PT LIVES IN HOME [facility]. PT CO OF LBP. PT CONNECTED TO MONITOR EQUIMENT
[2020-12-26 17:45] VITALS: BP 106/70
[2020-12-26] MEDS ORDERED: DIPH,PERTUSS(ACELL),TET VAC/PF 0.5 ML IM-VACC ONE ×2 (18:00→19:30)
[2020-12-26 18:15] LABS: MICROSCOPIC NOT IND
[2020-12-26 19:07] LABS: BASOPHILS % (AUTO) 1 % (0-1); EOSINOPHILS % (AUTO) 3 % (1-7); LYMPHOCYTES % (AUTO) 21 % (22-44); MEAN CORPUSCULAR HEMOGLOBIN 30.7 pg (27.5-34.5); MEAN CORPUSCULAR HGB CONC 33.3 g/dL (33.2-36.2); MEAN PLATELET VOLUME 6.6 fL (7.4-10.4); MONOCYTES % (AUTO) 8 % (2-9); NEUTROPHILS % (AUTO) 68 % (42-75); PLATELET COUNT 267 x10^3/uL (130-400); RED CELL DISTRIBUTION WIDTH 15.9 % (9.4-14.8)
[2020-12-26 19:18] LABS: ALANINE AMINOTRANSFERASE 22 U/L (12-78); ALBUMIN 3.4 g/dL (3.4-5.0); ANION GAP 7 mmol/L (5-15); CALCIUM 8.4 mg/dL (8.5-10.1); CHLORIDE 109 mmol/L (98-107); CREATININE 0.99 mg/dL (0.7-1.3)
[2020-12-26 19:21] LABS: ALKALINE PHOSPHATASE 67 U/L (45-117); BILIRUBIN,TOTAL 0.4 mg/dL (0.2-1.0); TOTAL PROTEIN 6.8 g/dL (6.4-8.2)
== END 2020-12-26 20:06 | disposition home or self-care (01) ==
LOC: ED 19:48
DX: S32.029A Unspecified fracture of second lumbar vertebra, initial encounter for closed fracture (principal); S32.039A Unspecified fracture of third lumbar vertebra, initial encounter for closed fracture; F10.129 Alcohol abuse with intoxication, unspecified; I10 Essential (primary) hypertension; K21.9 Gastro-esophageal reflux disease without esophagitis; W18.30XA Fall on same level, unspecified, initial encounter; Y93.89 Activity, other specified; Y92.009 Unspecified place in unspecified non-institutional (private) residence as the place of occurrence of the external cause; Y99.8 Other external cause status
CPT/HCPCS: 36415; 71045; 72072; 72110; 80053; 80320; 81003; 85025; 90471; 90715; G0480